=== PATIENT | male | born 1995 | race Two or more races ===

== ENCOUNTER 2021-04-11 22:36 | Emergency (ER) | payer SELFPAY ==
[~2021-04-11] VITALS: Ht 175.3 cm; Wt 69.0 kg
[2021-04-12] MEDS ORDERED: ACETAMINOPHEN 325MG TABLET PO ONE
[2021-04-12] MEDS ORDERED: TOPUD MT (00:30)
[2021-04-12 01:38] VITALS: BP 121/69
== END 2021-04-12 01:38 | disposition home or self-care (01) ==
LOC: ER 22:36
DX: M54.5 Low back pain (principal); G89.29 Other chronic pain; Z98.890 Other specified postprocedural states
CPT/HCPCS: 72100; 99283

== ENCOUNTER 2021-04-25 07:37 | Emergency (ER) | payer MEDICAID ==
[~2021-04-25] VITALS: Ht 162.6 cm; Wt 64.0 kg
[~2021-04-25 07:37] MED LIST: TOPUD MT
[2021-04-25] MEDS ORDERED: SODIUM CHLORIDE 0.9% 1,000 ML IV ONE (08:00)
[2021-04-25] MEDS ORDERED: MORPHINE SULFATE 4 MG/ML CPJ (NOT FOR IM USE) IV STA (08:00)
[2021-04-25] MEDS ORDERED: ONDANSETRON HCL 4MG/2ML INJ IV STA (08:00)
[2021-04-25] MEDS ORDERED: MORPHINE SULFATE 2 MG/ML CPJ (NOT FOR IM USE) IV STA (08:30)
[2021-04-25] MEDS ORDERED: FAMOTIDINE 20MG/2ML VIAL IV ONE (09:15)
[2021-04-25 09:33] LABS: HEMATOCRIT. 47.8 % (42.0-52.0); HEMOGLOBIN. 14.9 g/dL (14.0-18.0); MEAN CORPUSCULAR HEMOGLOBIN 26.9 pg (28.0-32.0); PLATELET 173 x1000/uL (130-400); RED BLOOD CELL COUNT 5.55 mill/uL (4.7-6.1); RED CELL DISTRIBUTION WIDTH 15.9 % (11.6-14.6)
[2021-04-25 09:38] LABS: CHLORIDE 108 mEq/L (98-107)
[2021-04-25 09:44] LABS: ETHANOL BLOOD < 10 mg/dL
[2021-04-25 10:47] LABS: PLATELET ESTIMATE NORMAL
[2021-04-25 11:06] LABS: CLARITY URINE CLEAR (CLEAR); COLOR URINE YELLOW (YELLOW); KETONES URINE NEGATIVE (NEGATIVE); LEUKOCYTE ESTERASE URINE NEGATIVE (NEGATIVE); NITRITE URINE NEGATIVE (NEGATIVE); OCCULT BLOOD URINE NEGATIVE (NEGATIVE); PH URINE 8.5 (4.5-8.0); PROTEIN URINE NEGATIVE (NEGATIVE); SPECIFIC GRAVITY URINE 1.016 (1.005-1.030); UROBILINOGEN URINE 0.2 E.U./dL (0.2-1.0)
[2021-04-25 11:30] LABS: *AMPHETAMINES SCREEN URINE NEGATIVE (NEGATIVE); *BARBITURATES SCREEN URINE NEGATIVE (NEGATIVE); *BENZODIAZEPINES SCREEN URINE NEGATIVE (NEGATIVE); *COCAINE SCREEN URINE NEGATIVE (NEGATIVE); CANNABINOID URINE SCREEN PRESUMTIVE POSITIVE (NEGATIVE); METHADONE URINE SCREEN NEGATIVE (NEGATIVE); OPIATES URINE SCREEN NEGATIVE (NEGATIVE); PHENCYCLIDINE URINE SCREEN NEGATIVE (NEGATIVE)
[2021-04-25] MEDS ORDERED: ONDA4TAB5 MT (12:44)
[2021-04-25] MEDS ORDERED: OMEP20CA14 MT (12:44)
[2021-04-25] MEDS ORDERED: ONDANSETRON HCL 4MG/2ML INJ IV ONE (13:30)
[2021-04-25] MEDS ORDERED: KETOROLAC 30MG/ML VIAL IV ONE (13:30)
[2021-04-25 13:36] VITALS: BP 150/83
== END 2021-04-25 15:22 | disposition home or self-care (01) ==
LOC: ER 07:37
DX: R10.9 Unspecified abdominal pain (principal); I10 Essential (primary) hypertension; Z20.822 Contact with and (suspected) exposure to COVID-19
CPT/HCPCS: 36415; 71045; 74176; 80053; 80305; 80320; 81003; 83690; 85025; 87426; 96361; 96374; 96375; 96376; 99285; J1885; J2405; J3490; J7030; Z7610; J2270; G0480